=== PATIENT | male | born 1970 | race Caucasian/White ===

== ENCOUNTER 2018-04-23 14:12 | Emergency (ER) | payer OTHER ==
[~2018-04-23] VITALS: Ht 193 cm; Wt 99.8 kg
[2018-04-23] MEDS ORDERED: LOSARTAN POTASS25 MG (14:34)
[2018-04-23] MEDS ORDERED: METFORMIN HCL500 MG (14:34)
[2018-04-23] MEDS ORDERED: METOPROLOL SUC100 MG (14:34)
== END 2018-04-23 21:10 | disposition home or self-care (01) ==
LOC: ER 14:12
DX: R10.11 Right upper quadrant pain (principal)